=== PATIENT | male | born 1930 | race American Indian/Alaskan Native ===

== ENCOUNTER 2016-08-18 22:25 | Emergency (ER) | payer MEDICARE, OTHER ==
[2016-08-18 23:13] LABS: Hematocrit 29.8 % (35.5-45.6); Hemoglobin 9.5 gm/dl (11.8-15.2); Red Blood Count 3.28 M/mm3 (3.65-5.03); White Blood Count 12.3 K/mm3 (4.5-11.0)
[2016-08-18 23:14] LABS: Basophils % (Auto) 0.7 % (0.0-1.8); Eosinophils % (Auto) 2.6 % (0.0-4.3); Mean Corpuscular HGB Conc 32 % (32-34); Mean Corpuscular Hemoglobin 29 pg (28-32); Mean Corpuscular Volume 91 fl (84-94); Platelet Count 284 K/mm3 (140-440); Red Cell Distribution Width 14.6 % (13.2-15.2)
[2016-08-18 23:27] LABS: Anion Gap 19 mmol/L; Blood Urea Nitrogen 15 mg/dL (9-20); Calcium 9.4 mg/dL (8.4-10.2); Carbon Dioxide 25 mmol/L (22-30); Chloride 104.1 mmol/L (98-107); Glucose 149 mg/dL (75-100); Potassium 3.8 mmol/L (3.6-5.0); Sodium 144 mmol/L (137-145)
[2016-08-19] MEDS ORDERED: ATROVENT IH ONE (02:10)
[2016-08-19] MEDS ORDERED: LEVAQUIN 750MG/150ML 750 MG/150 ML BAG IV ONE (02:11)
[2016-08-19] MEDS ORDERED: PROVENTIL IH ONE (02:11)
[2016-08-19] MEDS ORDERED: ASPIRIN PO ONE (02:11)
[2016-08-19] MEDS ORDERED: NACL 0.9% 500 ML 500 ML IV ONE (02:11)
--- NOTE | 2016-08-19 02:22 | Emergency Department Report ---
ED General Adult HPI - General Chief complaint: Dyspnea/Respdistress Stated complaint: SOB Time Seen by Provider: 08/19/16 01:51 Source: patient, family, RN notes reviewed Mode of arrival: Wheelchair Limitations: No Limitations - History of Present Illness Initial comments: This is an 85-year-old male. He is previously unknown to me. His primary care doctor is Dr. Zurita. Past medical history includes COPD, BPH, heart disease with stent, left lower extremity DVT, known diagnosis of lung cancer, recent placement of IVC filter. As per the patient's , the patient was on systemic anticoagulation, (xarelto ) which was stopped secondary to GI bleeding. The patient is brought to the hospital today for sudden onset shortness of breath. This is constant. And has no exacerbating or relieving factors, with the exception of physical activity which worsens it. There is no leg pain. There is no leg swelling. Patient was recently admitted to [facility] from August 08 to August 18 for pneumonia. In the ER, patient was found to have a right middle lobe pneumonia, and a positive troponin level. I had an extensive discussion with the patient's . She refused/declined aspirin for the patient as she was instructed to not take aspirin given his recent IVC filter placement. The patient was treated empirically with albuterol, Atrovent, steroids, Levaquin therapy. A d-dimer was ordered, and we will obtain a CT scan of the chest. The patient's request transfer back to [facility] as all the patient' s physicians are there, and his medical records are there. Currently, we are waiting for call back from [facility] to secure an accepting physician. -: Sudden Consistency: constant Improves with: rest Worsens with: movement Associated Symptoms: shortness of breath, other (patient is a poor historian, likely has dementia, history is mostly obtained from the patient's .) - Related Data Home Medications Medication Instructions Recorded Confirmed Last Taken Aspirin [Aspirin BABY CHEW TAB] 81 mg PO QDAY 01/03/16 08/19/16 Unknown Atorvastatin Calcium [Lipitor] 20 mg PO QHS 01/03/16 08/19/16 Unknown Finasteride [Proscar] 5 mg PO QDAY 01/03/16 08/19/16 Unknown Metoprolol [Lopressor] 25 mg PO BID 01/03/16 08/19/16 Unknown Losartan [Cozaar] 50 mg PO QDAY 08/19/16 08/19/16 Unknown guaiFENesin/CODEINE [Robitussin AC] 5 ml PO TID 08/19/16 08/19/16 Unknown Previous Rx's Medication Instructions Recorded Last Taken Type Benzonatate [Tessalon Perles] 100 mg PO Q8HR PRN #30 capsule 06/17/16 08/18/16 Rx Albuterol Sulfate [Albuterol 0.63% 0.63 mg IH Q4HR PRN #2 ml 08/19/16 Unknown Rx NEBS] Albuterol Sulfate [Proair 90 mcg IH Q4HR PRN #2 aer.pow.ba 08/19/16 Unknown Rx Respiclick] Ipratropium Dwarf [Atrovent Hfa] 12.9 gm IH Q4HR #2 hfa.aer.ad 08/19/16 Unknown Rx Ipratropium [Atrovent NEB] 0.5 mg IH Q4HR #2 ml 08/19/16 Unknown Rx Levofloxacin [Levaquin TAB] 500 mg PO QDAY #5 tablet 08/19/16 Unknown Rx predniSONE [Deltasone] 40 mg PO QDAY #8 tab 08/19/16 Unknown Rx Allergies Allergy/AdvReac Type Severity Reaction Status Date / Time ramipril AdvReac Dizziness Verified 03/26/15 16:06 ED Review of Systems ROS: Stated complaint: SOB Other details as noted in HPI Constitutional: malaise, weakness. denies: fever Eyes: denies: vision change ENT: denies: epistaxis Respiratory: shortness of breath Cardiovascular: dyspnea on exertion. 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 CAD, lung CA - Surgical History Hx Coronary Stent: Yes Hx Open Heart Surgery: No Hx Cholecystectomy: No Hx Appendectomy: No Hx Breast Surgery: No Additional Surgical History: Pancrease drain tube - Social History Smoking Status: Never Smoker Substance Use Type: None - Medications Home Medications: Home Medications Medication Instructions Recorded Confirmed Last Taken Type Aspirin [Aspirin BABY CHEW TAB] 81 mg PO QDAY 01/03/16 08/19/16 Unknown History Atorvastatin Calcium [Lipitor] 20 mg PO QHS 01/03/16 08/19/16 Unknown History Finasteride [Proscar] 5 mg PO QDAY 01/03/16 08/19/16 Unknown History Metoprolol [Lopressor] 25 mg PO BID 01/03/16 08/19/16 Unknown History Benzonatate [Tessalon Perles] 100 mg PO Q8HR PRN #30 capsule 06/17/16 08/19/16 08/18/16 Rx Albuterol Sulfate [Albuterol 0.63% 0.63 mg IH Q4HR PRN #2 ml 08/19/16 Unknown Rx NEBS] Albuterol Sulfate [Proair 90 mcg IH Q4HR PRN #2 aer.pow.ba 08/19/16 Unknown Rx Respiclick] Ipratropium Dwarf [Atrovent Hfa] 12.9 gm IH Q4HR #2 hfa.aer.ad 08/19/16 Unknown Rx Ipratropium [Atrovent NEB] 0.5 mg IH Q4HR #2 ml 08/19/16 Unknown Rx Levofloxacin [Levaquin TAB] 500 mg PO QDAY #5 tablet 08/19/16 Unknown Rx Losartan [Cozaar] 50 mg PO QDAY 08/19/16 08/19/16 Unknown History guaiFENesin/CODEINE [Robitussin AC] 5 ml PO TID 08/19/16 08/19/16 Unknown History predniSONE [Deltasone] 40 mg PO QDAY #8 tab 08/19/16 Unknown Rx ED Physical Exam - General Limitations: Physical Limitation, Other (poor hsitorian) General appearance: in no apparent distress - Head Head exam: Present: atraumatic, normocephalic - Eye Eye exam: Present: normal appearance, EOMI. Absent: nystagmus - ENT ENT exam: Present: normal exam, normal orophraynx, mucous membranes moist - Neck Neck exam: Present: normal inspection, full ROM. Absent: tenderness, meningismus - Respiratory Respiratory exam: Present: wheezes, rhonchi. Absent: respiratory distress - Cardiovascular Cardiovascular Exam: Present: normal rhythm, tachycardia, normal heart sounds. Absent: bradycardia, systolic murmur, diastolic murmur, rubs, gallop - GI/Abdominal GI/Abdominal exam: Present: soft, normal bowel sounds. Absent: distended, tenderness, guarding, rebound, rigid, pulsatile mass - Rectal Rectal exam: Present: deferred - Extremities Exam Extremities exam: Present: normal inspection, normal capillary refill, other ( numerous areas of upper and lower extremity ecchymosis noted). Absent: calf tenderness - Back Exam Back exam: Present: normal inspection - Neurological Exam Neurological exam: Present: alert, other (Extraocular movements intact. Tongue midline. No facial droop. Facial sensation intact to light touch in the V1, V2 , V3 distribution bilaterally. 5 and 5 strength in 4 extremities.. Sensation is intact to light touch in 4 extremities.). Absent: motor sensory deficit - Psychiatric Psychiatric exam: Present: normal affect, normal mood - Skin Skin exam: Present: warm, dry, intact, normal color. Absent: rash ED Course Vital Signs 08/18/16 08/19/16 08/19/16 22:46 01:00 01:04 Temperature 98.4 F Pulse Rate 104 H Respiratory 16 18 Rate Blood Pressure 147/102 O2 Sat by Pulse 97 89 Oximetry 08/19/16 08/19/16 08/19/16 01:11 01:21 01:30 Temperature Pulse Rate 98 H 93 H 92 H Respiratory 22 22 24 Rate Blood Pressure 138/82 138/82 111/76 O2 Sat by Pulse 92 99 Oximetry 08/19/16 08/19/16 08/19/16 01:41 01:51 02:00 Temperature Pulse Rate 93 H 92 H 93 H Respiratory 23 25 H 22 Rate Blood Pressure 111/76 111/76 119/74 O2 Sat by Pulse 98 99 98 Oximetry 08/19/16 08/19/16 08/19/16 02:11 02:21 02:30 Temperature Pulse Rate 96 H 94 H 92 H Respiratory 24 29 H 24 Rate Blood Pressure 119/74 119/74 131/78 O2 Sat by Pulse 94 92 96 Oximetry 08/19/16 08/19/16 08/19/16 02:41 02:51 03:00 Temperature Pulse Rate 89 91 H 92 H Respiratory 13 18 21 Rate Blood Pressure 131/78 131/78 113/69 O2 Sat by Pulse 100 100 100 Oximetry 08/19/16 08/19/16 08/19/16 03:11 03:21 03:30 Temperature Pulse Rate 97 H 93 H 95 H Respiratory 16 12 17 Rate Blood Pressure 113/69 113/69 113/62 O2 Sat by Pulse 99 96 99 Oximetry 08/19/16 08/19/16 08/19/16 03:41 03:51 04:00 Temperature Pulse Rate 93 H 92 H 89 Respiratory 16 10 L 20 Rate Blood Pressure 113/62 113/62 119/74 O2 Sat by Pulse 100 100 100 Oximetry 08/19/16 08/19/16 08/19/16 04:11 04:21 04:31 Temperature Pulse Rate 91 H 89 86 Respiratory 14 15 16 Rate Blood Pressure 119/74 119/74 144/88 O2 Sat by Pulse 99 100 89 Oximetry 08/19/16 08/19/16 08/19/16 04:41 04:51 05:00 Temperature Pulse Rate 90 87 85 Respiratory 21 22 21 Rate Blood Pressure 144/88 144/88 132/82 O2 Sat by Pulse 99 100 100 Oximetry 08/19/16 05:11 Temperature Pulse Rate Respiratory Rate Blood Pressure 132/82 O2 Sat by Pulse Oximetry - Reevaluation(s) Reevaluation #1: 08/19/16 04:04 Differential diagnosis: Pneumonia, postobstructive pneumonia, pulmonary embolus , acute coronary syndrome, pericardial effusion, cardiac strain Assessment and plan: 85-year-old male with shortness of breath, wheezing, known COPD, known history of lung cancer, known history of thromboembolic disease. He will be treated with albuterol, Atrovent, steroids, antibiotics. We are attempted to transfer. Reevaluation #2: 08/19/16 04:43 case d/w Dr Kidd, hospital physician at [facility]. she is going to inquire at to her bed situation patient and family refuse ct angio given history of GI bleed we will withhold emperic anticoagulation at this time Reevaluation #3: 08/19/16 04:53 [facility] cannot accepts as they do not have any beds I informed the patient's of this. She insists that she is going to go there. The patient's is alert and oriented 3. She exhibits decision- making capacity. She is here from distracting injury. The risks of travel in an unsupervised fashion including , disability, paralysis, permanent loss of quality of life were discussed with the patient's , who verbalized understanding. This conversation was witnessed by nurse Flaco Calderon. I recommended and offered admission to this hospital as an alternative, but the patient and his refuse. ED Medical Decision Making - Lab Data Result diagrams: 08/18/16 22:53 08/18/16 22:53 Vital Signs 08/18/16 08/19/16 22:46 01:00 Temperature 98.4 F Pulse Rate 104 H Respiratory 16 18 Rate Blood Pressure 147/102 O2 Sat by Pulse 97 Oximetry Lab Results 08/18/16 08/18/16 08/18/16 Range/Units 22:37 22:53 22:53 WBC 12.3 H (4.5-11.0) K/mm3 RBC 3.28 L (3.65-5.03) M/mm3 Hgb 9.5 L (11.8-15.2) gm/dl Hct 29.8 L (35.5-45.6) % MCV 91 (84-94) fl MCH 29 (28-32) pg MCHC 32 (32-34) % RDW 14.6 (13.2-15.2) % Plt Count 284 (140-440) K/mm3 Lymph % (Auto) 6.5 L (13.4-35.0) % [place] % (Auto) 7.3 (0.0-7.3) % Eos % (Auto) 2.6 (0.0-4.3) % Baso % (Auto) 0.7 (0.0-1.8) % Lymph # 0.8 L (1.2-5.4) K/mm3 [place] # 0.9 H (0.0-0.8) K/mm3 Eos # 0.3 (0.0-0.4) K/mm3 Baso # 0.1 (0.0-0.1) K/mm3 Seg Neutrophils % 82.9 H (40.0-70.0) % Seg Neutrophils # 10.2 H (1.8-7.7) K/mm3 PT (12.2-14.9) Sec. INR (0.87-1.13) D-Dimer (0-234) ng/mlDDU Sodium 144 (137-145) mmol/L Potassium 3.8 (3.6-5.0) mmol/L Chloride 104.1 (98-107) mmol/L Carbon Dioxide 25 (22-30) mmol/L Anion Gap 19 mmol/L BUN 15 (9-20) mg/dL Creatinine 0.5 L (0.8-1.5) mg/dL Estimated GFR > 60 ml/min BUN/Creatinine Ratio 30.00 % Glucose 149 H (75-100) mg/dL POC Glucose 173 H (70-105) Lactic Acid (0.7-2.0) mmol/L Calcium 9.4 (8.4-10.2) mg/dL Troponin T 0.030 H (0.00-0.029) ng/mL NT-Pro-B Natriuret Pep (0-900) pg/mL Triglycerides 82 (2-149) mg/dL Cholesterol 119 (50-199) mg/dL LDL Cholesterol Direct 57 (50-130) mg/dL HDL Cholesterol 46 (40-59) mg/dL Cholesterol/HDL Ratio 2.58 % 08/19/16 08/19/16 08/19/16 Range/Units 03:25 03:25 03:25 WBC (4.5-11.0) K/mm3 RBC (3.65-5.03) M/mm3 Hgb (11.8-15.2) gm/dl Hct (35.5-45.6) % MCV (84-94) fl MCH (28-32) pg MCHC (32-34) % RDW (13.2-15.2) % Plt Count (140-440) K/mm3 Lymph % (Auto) (13.4-35.0) % [place] % (Auto) (0.0-7.3) % Eos % (Auto) (0.0-4.3) % Baso % (Auto) (0.0-1.8) % Lymph # (1.2-5.4) K/mm3 [place] # (0.0-0.8) K/mm3 Eos # (0.0-0.4) K/mm3 Baso # (0.0-0.1) K/mm3 Seg Neutrophils % (40.0-70.0) % Seg Neutrophils # (1.8-7.7) K/mm3 PT 14.3 (12.2-14.9) Sec. INR 1.12 (0.87-1.13) D-Dimer 3771.69 H (0-234) ng/mlDDU Sodium (137-145) mmol/L Potassium (3.6-5.0) mmol/L Chloride (98-107) mmol/L Carbon Dioxide (22-30) mmol/L Anion Gap mmol/L BUN (9-20) mg/dL Creatinine (0.8-1.5) mg/dL Estimated GFR ml/min BUN/Creatinine Ratio % Glucose (75-100) mg/dL POC Glucose (70-105) Lactic Acid 1.50 (0.7-2.0) mmol/L Calcium (8.4-10.2) mg/dL Troponin T (0.00-0.029) ng/mL NT-Pro-B Natriuret Pep 163.2 (0-900) pg/mL Triglycerides (2-149) mg/dL Cholesterol (50-199) mg/dL LDL Cholesterol Direct (50-130) mg/dL HDL Cholesterol (40-59) mg/dL Cholesterol/HDL Ratio % - EKG Data 08/19/16 04:05 Sinus tachycardia, 108 bpm, borderline left axis deviation, motion artifact, QTC 463 ms, appears unchanged when compared to prior EKG from October 2011. - Radiology Data Radiology results: image reviewed interpreted by me: X-ray of the chest demonstrates right middle lobe pneumonia Critical care attestation.: If time is entered above; I have spent that time in minutes in the direct care of this critically ill patient, excluding procedure time. ED Disposition Clinical Impression: COPD exacerbation Disposition: LEFT AGAINST MEDICAL ADVICE Is pt being admited?: No Condition: Undetermined Instructions: Chronic Obstructive Pulmonary Disease (ED) Additional Instructions: As we discussed, you have left the hospital/emergency room AGAINST MEDICAL ADVICE. By leaving, you risked , disability, paralysis, permanent loss of quality of life. The ER is open 24 hours a day, 7 days a week. It never closes. Please return to the emergency room right away if and when you change your mind. If you decide not to return to the emergency room, please follow-up with the listed physician referrals as soon as possible. Prescriptions: Albuterol Sulfate [Albuterol 0.63% NEBS] 0.63 mg IH Q4HR PRN #2 ml PRN Reason: Wheezing Albuterol Sulfate [Proair Respiclick] 90 mcg IH Q4HR PRN #2 aer.pow.ba PRN Reason: Wheezing Ipratropium [Atrovent NEB] 0.5 mg IH Q4HR #2 ml Ipratropium Dwarf [Atrovent Hfa] 12.9 gm IH Q4HR #2 hfa.aer.ad Levofloxacin [Levaquin TAB] 500 mg PO QDAY #5 tablet predniSONE [Deltasone] 40 mg PO QDAY #8 tab Referrals: SANTINO DUQUE MD [Primary Care Provider] - 3-5 Days
[2016-08-19 03:31] LABS: Cholesterol 119 mg/dL (50-199); HDL Cholesterol 46 mg/dL (40-59); LDL Cholesterol,Direct 57 mg/dL (50-130); Triglycerides 82 mg/dL (2-149)
[2016-08-19 03:47] LABS: INR 1.12 (0.87-1.13)
[2016-08-19] MEDS ORDERED: NACL ONE (04:09)
[2016-08-19 05:16] LABS: Bilirubin,Urine NEG (Negative); Blood,Urine NEG (Negative); Ketones,Urine NEG (Negative); Leukocyte Esterase,Urine MOD (Negative); Mucus,Urine FEW /HPF; Nitrite,Urine NEG (Negative); Urobilinogen,Urine < 2.0 mg/dL (<2.0)
[2016-08-19 06:05] VITALS: BP 132/82
--- NOTE | 2016-08-19 07:34 | XRay Report ---
ROUTINE CHEST, TWO VIEWS: HISTORY: Shortness of breath. Compared to 06/16/16. A moderate sized opacity has developed in the superior segment of the right lower lobe. This presumably represents pneumonia. There are underlying emphysematous changes. No pleural effusion or pneumothorax. Heart size remains within normal limits. The bony structures are demineralized. There is a compression deformity at approximate T5 level with 75% loss of height. This appears to be chronic. IMPRESSION: New right lung opacity which probably represents pneumonia. Correlate with the patient's clinical presentation. If no fever is present, a mass cannot be entirely excluded. Consider followup after therapy.
[2016-08-21 06:44] LABS: ISTAT Base Excess 1; ISTAT HCO3 25.8; ISTAT PCO2 41.8 (35-45); ISTAT PH 7.398 (7.35-7.45); ISTAT PO2 101 (80-105); ISTAT SO2 98; ISTAT TCO2 27
== END 2016-08-19 05:40 | disposition left against medical advice (07) ==
LOC: ED 22:25
DX: J44.1 Chronic obstructive pulmonary disease with (acute) exacerbation (principal); I10 Essential (primary) hypertension; I25.10 Atherosclerotic heart disease of native coronary artery without angina pectoris; Z95.818 Presence of other cardiac implants and grafts; Z87.440 Personal history of urinary (tract) infections; Z79.82 Long term (current) use of aspirin
CPT/HCPCS: 36415; 51701; 71020; 80048; 80061; 81001; 82140; 82962; 83880; 84484; 85025; 85379; 85610; 87040; 87086; 93005; 93010; 96365; 96366; 96375; 99284; J1956; J2930; J7040; 82803

== ENCOUNTER 2016-12-14 17:58 | Emergency (ER) | payer MEDICARE, OTHER ==
--- NOTE | 2016-12-14 18:04 | Emergency Department Report ---
Stated Complaint: MIGUEL Time Seen by Provider: 12/14/16 18:00 - HPI History of Present Illness: PT c/o sob. pt states he does not use home oxygen. PT with sob since this afternoon, per friend. - ROS Review of Systems: pt denies pain + sob - Exam Physical Exam: thin male, increase wob noted tachypnea MSE screening note: Focused history and physical exam performed. Due to findings the following was ordered: room, ekg, labs ED Disposition for MSE Condition: Stable
[2016-12-14 18:56] LABS: Basophils % (Auto) 0.5 % (0.0-1.8); Eosinophils % (Auto) 2.6 % (0.0-4.3); Hematocrit 36.7 % (35.5-45.6); Hemoglobin 11.4 gm/dl (11.8-15.2); Mean Corpuscular HGB Conc 31 % (32-34); Mean Corpuscular Hemoglobin 26 pg (28-32); Mean Corpuscular Volume 85 fl (84-94); Platelet Count 296 K/mm3 (140-440); Red Blood Count 4.33 M/mm3 (3.65-5.03); White Blood Count 13.8 K/mm3 (4.5-11.0)
[2016-12-14 19:06] LABS: INR 0.94 (0.87-1.13)
[2016-12-14 19:07] LABS: Partial Thromboplastin Time 33.2 Sec. (24.2-36.6)
--- NOTE | 2016-12-14 19:16 | Emergency Department Report ---
ED General Adult HPI - General Chief complaint: Dyspnea/Respdistress Stated complaint: MIGUEL Time Seen by Provider: 12/14/16 18:00 Source: patient, EMS Mode of arrival: Wheelchair Limitations: Physical Limitation - History of Present Illness Initial comments: Patient reports difficulty in breathing. He states he is home neb machine twice today. Denies chest pain. He denies significant cough. He's had no hemoptysis. He does not have any leg pain or swelling. Denies fever or chills. The patient has a history of lung cancer. Status post XRT. He is not on home O2. He had a low O2 sat in triage. However, right now I'm not able to replicate that off oxygen. -: Gradual, days(s) Consistency: intermittent Associated Symptoms: cough (nonproductive chronic), shortness of breath - Related Data Home Medications Medication Instructions Recorded Confirmed Last Taken Aspirin [Aspirin BABY CHEW TAB] 81 mg PO QDAY 01/03/16 08/19/16 Unknown Atorvastatin Calcium [Lipitor] 20 mg PO QHS 01/03/16 08/19/16 Unknown Finasteride [Proscar] 5 mg PO QDAY 01/03/16 08/19/16 Unknown Metoprolol [Lopressor] 25 mg PO BID 01/03/16 08/19/16 Unknown Losartan [Cozaar] 50 mg PO QDAY 08/19/16 08/19/16 Unknown guaiFENesin/CODEINE [Robitussin AC] 5 ml PO TID 08/19/16 08/19/16 Unknown Previous Rx's Medication Instructions Recorded Last Taken Type Benzonatate [Tessalon Perles] 100 mg PO Q8HR PRN #30 capsule 06/17/16 08/18/16 Rx Albuterol Sulfate [Albuterol 0.63% 0.63 mg IH Q4HR PRN #2 ml 08/19/16 Unknown Rx NEBS] Albuterol Sulfate [Proair 90 mcg IH Q4HR PRN #2 aer.pow.ba 08/19/16 Unknown Rx Respiclick] Ipratropium [place] [Atrovent Hfa] 12.9 gm IH Q4HR #2 hfa.aer.ad 08/19/16 Unknown Rx Ipratropium [Atrovent NEB] 0.5 mg IH Q4HR #2 ml 08/19/16 Unknown Rx Levofloxacin [Levaquin TAB] 500 mg PO QDAY #5 tablet 08/19/16 Unknown Rx predniSONE [Deltasone] 40 mg PO QDAY #8 tab 08/19/16 Unknown Rx Albuterol Sulfate [Albuterol 0.63% 0.63 mg IH Q4H PRN #30 vial.neb 12/14/16 Unknown Rx NEBS] Benzonatate [Tessalon Perles] 100 mg PO Q8HR #30 capsule 12/14/16 Unknown Rx predniSONE [Deltasone] 40 mg PO QDAY #10 tab 12/14/16 Unknown Rx Allergies Allergy/AdvReac Type Severity Reaction Status Date / Time ramipril AdvReac Dizziness Verified 03/26/15 16:06 ED Review of Systems ROS: Stated complaint: MIGUEL Other details as noted in HPI Constitutional: denies: chills, fever Eyes: denies: eye pain, eye discharge, vision change ENT: denies: ear pain, throat pain Respiratory: cough, shortness of breath, wheezing Cardiovascular: denies: chest pain, palpitations Endocrine: no symptoms reported Gastrointestinal: denies: abdominal pain, nausea, diarrhea Genitourinary: denies: urgency, dysuria Musculoskeletal: denies: back pain, joint swelling, arthralgia Skin: denies: rash, lesions Neurological: denies: headache, weakness, paresthesias Psychiatric: denies: anxiety, depression Hematological/Lymphatic: denies: easy bleeding, easy bruising ED Past Medical Hx - Past Medical History Previous Medical History?: Yes Hx Hypertension: Yes Hx Congestive Heart Failure: No Hx of Cancer: Yes (lung) Hx COPD: Yes Hx HIV: No Additional medical history: Prostate, UTI, [place] @ times, hernia, 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 CAD, lung CA - Surgical History Past Surgical History?: Yes Hx Coronary Stent: Yes Hx Open Heart Surgery: No Hx Cholecystectomy: No Hx Appendectomy: No Hx Breast Surgery: No Additional Surgical History: Pancrease drain tube - Social History Smoking Status: Former Smoker Substance Use Type: Alcohol, Prescribed - Medications Home Medications: Home Medications Medication Instructions Recorded Confirmed Last Taken Type Aspirin [Aspirin BABY CHEW TAB] 81 mg PO QDAY 01/03/16 08/19/16 Unknown History Atorvastatin Calcium [Lipitor] 20 mg PO QHS 01/03/16 08/19/16 Unknown History Finasteride [Proscar] 5 mg PO QDAY 01/03/16 08/19/16 Unknown History Metoprolol [Lopressor] 25 mg PO BID 01/03/16 08/19/16 Unknown History Benzonatate [Tessalon Perles] 100 mg PO Q8HR PRN #30 capsule 06/17/16 08/19/16 08/18/16 Rx Albuterol Sulfate [Albuterol 0.63% 0.63 mg IH Q4HR PRN #2 ml 08/19/16 Unknown Rx NEBS] Albuterol Sulfate [Proair 90 mcg IH Q4HR PRN #2 aer.pow.ba 08/19/16 Unknown Rx Respiclick] Ipratropium [place] [Atrovent Hfa] 12.9 gm IH Q4HR #2 hfa.aer.ad 08/19/16 Unknown Rx Ipratropium [Atrovent NEB] 0.5 mg IH Q4HR #2 ml 08/19/16 Unknown Rx Levofloxacin [Levaquin TAB] 500 mg PO QDAY #5 tablet 08/19/16 Unknown Rx Losartan [Cozaar] 50 mg PO QDAY 08/19/16 08/19/16 Unknown History guaiFENesin/CODEINE [Robitussin AC] 5 ml PO TID 08/19/16 08/19/16 Unknown History predniSONE [Deltasone] 40 mg PO QDAY #8 tab 08/19/16 Unknown Rx Albuterol Sulfate [Albuterol 0.63% 0.63 mg IH Q4H PRN #30 vial.neb 12/14/16 Unknown Rx NEBS] Benzonatate [Tessalon Perles] 100 mg PO Q8HR #30 capsule 12/14/16 Unknown Rx predniSONE [Deltasone] 40 mg PO QDAY #10 tab 12/14/16 Unknown Rx ED Physical Exam - General Limitations: Physical Limitation General appearance: alert, in no apparent distress - Head Head exam: Present: atraumatic, normocephalic - Eye Eye exam: Present: normal appearance. Absent: scleral icterus - ENT ENT exam: Present: mucous membranes moist - Neck Neck exam: Present: normal inspection. Absent: tenderness, meningismus - Respiratory Respiratory exam: Present: wheezes (mild expiratory wheezing), decreased breath sounds (somewhat decreased). Absent: respiratory distress, accessory muscle use - Cardiovascular Cardiovascular Exam: Present: regular rate, normal rhythm. Absent: systolic murmur, diastolic murmur, rubs, gallop - GI/Abdominal GI/Abdominal exam: Present: soft, normal bowel sounds. Absent: distended, tenderness, guarding, rebound, rigid - Rectal Rectal exam: Present: deferred - Extremities Exam Extremities exam: Present: normal inspection, normal capillary refill. Absent: joint swelling, calf tenderness - Back Exam Back exam: Present: normal inspection - Neurological Exam Neurological exam: Present: alert, oriented X3, CN II-XII intact. Absent: motor sensory deficit - Psychiatric Psychiatric exam: Present: normal affect, normal mood - Skin Skin exam: Present: warm, dry, intact, normal color. Absent: rash ED Course Vital Signs 12/14/16 18:03 Temperature 98.3 F Pulse Rate 87 Respiratory 22 Rate Blood Pressure 153/94 O2 Sat by Pulse 90 Oximetry - Reevaluation(s) Reevaluation #1: Patient noted to have a dry cough. He received 2 nebs with benefit. His repeat pulse oximetry is without treatment were 99-100% taken several times. It would appear that his initial sat was inaccurate or perhaps due to a mucous plug. He is appropriate for outpatient disposition. 12/14/16 19:43 ED Medical Decision Making - Lab Data Result diagrams: 12/14/16 18:30 12/14/16 18:30 Laboratory Results - last 24 hr 12/14/16 12/14/16 18:30 18:30 WBC 13.8 H RBC 4.33 Hgb 11.4 L Hct 36.7 MCV 85 MCH 26 L MCHC 31 L RDW 17.0 H Plt Count 296 Lymph % (Auto) 9.9 L [place] % (Auto) 7.6 H Eos % (Auto) 2.6 Baso % (Auto) 0.5 Lymph # 1.4 [place] # 1.0 H Eos # 0.4 Baso # 0.1 Seg Neutrophils % 79.4 H Seg Neutrophils # 10.9 H PT 13.0 INR 0.94 APTT 33.2 - Radiology Data interpreted by me: Chest x-ray shows a right middle lobe cancer. No acute process. Critical care attestation.: If time is entered above; I have spent that time in minutes in the direct care of this critically ill patient, excluding procedure time. ED Disposition Clinical Impression: COPD exacerbation Lung cancer Qualifiers: Laterality: right Lung location: middle lobe of lung Qualified Code(s): C34.2 - Malignant neoplasm of middle lobe, bronchus or lung Disposition: TO HOME OR SELFCARE Is pt being admited?: No Does the pt Need Aspirin: No Condition: Stable Instructions: Lung Cancer (ED), Chronic Obstructive Pulmonary Disease (ED) Additional Instructions: Return any chest pain or difficulty breathing as needed. Follow-up with usual primary care physician tomorrow. Rx prednisone for the next few days as well as medication for cough. Prescriptions: Albuterol Sulfate [Albuterol 0.63% NEBS] 0.63 mg IH Q4H PRN #30 vial.neb PRN Reason: Wheezing Benzonatate [Tessalon Perles] 100 mg PO Q8HR #30 capsule predniSONE [Deltasone] 40 mg PO QDAY #10 tab Referrals: PRIMARY CAREMD [Primary Care Provider] - 24 Hours Time of Disposition: 19:49
[2016-12-14 19:22] LABS: Alanine Aminotransferase 13 units/L (7-56); Albumin 3.2 g/dL (3.9-5); Albumin/Globulin Ratio 0.8 %; Alkaline Phosphatase 102 units/L (35-129); Anion Gap 20 mmol/L; Blood Urea Nitrogen 7 mg/dL (9-20); Calcium 8.8 mg/dL (8.4-10.2); Carbon Dioxide 26 mmol/L (22-30); Chloride 94.2 mmol/L (98-107); Glucose 113 mg/dL (75-100); Potassium 3.9 mmol/L (3.6-5.0); Sodium 136 mmol/L (137-145); Total Protein 7.4 g/dL (6.3-8.2)
[2016-12-14] MEDS: PROVENTIL IH ONE (19:29)
[2016-12-14] MEDS: ATROVENT IH ONE (19:29)
[2016-12-14 19:48] LABS: ISTAT Base Excess 4; ISTAT HCO3 30.6; ISTAT PCO2 59.4 (35-45); ISTAT PO2 121 (80-105); ISTAT SO2 98; ISTAT TCO2 32
[2016-12-14 22:46] VITALS: BP 122/75
--- NOTE | 2016-12-15 08:30 | XRay Report ---
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 COMPARISON:08/18/16 FINDINGS: An irregular right hilar opacity is more masslike than on the previous exam. The lungs are otherwise clear. Normal heart and pulmonary vessels. Aortic ectasia and tortuosity. The bones and soft tissues are normal. IMPRESSION: Right hilar mass with progression of known right lung cancer.No CHF or pneumonia.
== END 2016-12-14 22:46 | disposition home or self-care (01) ==
LOC: ED 17:58
DX: J44.1 Chronic obstructive pulmonary disease with (acute) exacerbation (principal); C34.2 Malignant neoplasm of middle lobe, bronchus or lung; I10 Essential (primary) hypertension; Z87.891 Personal history of nicotine dependence; Z79.82 Long term (current) use of aspirin; Z88.8 Allergy status to other drugs, medicaments and biological substances
CPT/HCPCS: 36415; 71010; 80053; 82803; 83880; 84484; 85025; 85610; 85730; 93005; 93010; 94640; 96374; 99284; J2930